=== PATIENT | male | born 1945 | race Caucasian/White ===

== ENCOUNTER → 2016-03-14 | Outpatient (CLI) | payer OTHER, MEDICARE ==
--- NOTE | 2016-03-14 19:20 | DX ---
PA and Lateral Chest on March 14, 2016 Clinical Indications: Upper respiratory tract infection in a 71-year-old male; no previous studies a re available for comparison. Findings: There is right upper lobe alveolar opacity presumably reflecting pneumonia. Bilateral perih ilar opacities as well as peribronchial thickening are seen. There is blunting of the right costophre thierno angle which may represent a small pleural effusion. There is also hyperexpansion seen suggesting COPD. The heart is borderline enlarged and there is mild pulmonary venous redistribution. Postoperati ve changes of previous open heart surgery are seen. Impression: 1. Suspect right upper lobe pneumonia superimposed upon underlying COPD/chronic bronchitis. 2. Right pleural effusion. 3. Findings suggest low-grade congestive heart failure without pulmonary edema.
== END ==
LOC: GIMAGING 14:57
PROVIDERS: ATTEND Internal Medicine
DX: J98.4 Other disorders of lung (principal); J90 Pleural effusion, not elsewhere classified; I51.7 Cardiomegaly
CPT/HCPCS: 71020-PO

== ENCOUNTER → 2016-09-25 | Outpatient (CLI) | payer OTHER, MEDICARE | LOC: BHFA 09:15 | PROVIDERS: ATTEND Internal Medicine Interventional Cardiology | DX: I25.10 Atherosclerotic heart disease of native coronary artery without angina pectoris (principal); I10 Essential (primary) hypertension; R06.02 Shortness of breath ==

== ENCOUNTER → 2016-12-28 | Outpatient (CLI) | payer OTHER, MEDICARE | LOC: SBRMNEURO 20:00 | PROVIDERS: ATTEND Psychiatry & Neurology Sleep Medicine | DX: G47.33 Obstructive sleep apnea (adult) (pediatric) (principal); G47.31 Primary central sleep apnea; G47.61 Periodic limb movement disorder; G47.52 REM sleep behavior disorder ==

== ENCOUNTER → 2017-01-17 | Day surgery (SDC) | payer OTHER, MEDICARE ==
[~2017-01-17] MED LIST: BUPIVACAINE 0.5% 30 ML SDV ONE; GLYCOPYRROLATE 0.2 MG/1 ML VIAL ONE; HYDROmorphONE/DILAUDID 1 MG/ML INJ IVP PRN; LIDOCAINE 1% 2 ML INJ ID PRN; MIDAZOLAM 2 MG/2 ML VIAL IVP ONE; NALOXONE HCL 0.4 MG/ML INJ IVP PRN; NEOSTIGMINE METHYLSULFATE 3 MG/3 ML SYR ONE; NS 1,000 ML IV ONE; ONDANSETRON 4 MG/2 ML VIAL ONE; POVIDONE-IODINE 30 GM OINTTUBE TP ONE; PROPOFOL 200 MG/20 ML VIAL ONE; RANITIDINE 50 MG/2 ML VIAL ONE; ROCURONIUM 50 MG/5 ML VIAL ONE; ceFAZolin 2 GM/SWFI 2 GM/20 ML SYR IVP ONE; fentaNYL 100 MCG/2 ML INJ IVP PRN; fentaNYL 100 MCG/2 ML INJ ONE
[2017-01-17 06:14] VITALS: PULSE 70
--- NOTE | 2017-01-17 07:04 | PDHPUP ---
History & Physical Update H&P update statement: This history and physical update is based on an assessment of the patient which was completed after admission or registration (within 24 hours), but prior to the surgery/procedure. reviewed 01/17/17
[2017-01-17 07:07] LABS: ANION GAP 10 mEq/L (8-16); CALCIUM 8.4 mg/dL (8.5-10.4); CARBON DIOXIDE 28 mEq/l (22-31); CHLORIDE 102 mEq/L (97-110); CREATININE 3.7 mg/dL (0.7-1.3); GLOMERULAR FILTRATION RATE 16; GLUCOSE 97 mg/dL (70-100); POTASSIUM 4.8 mEq/L (3.5-5.2); SODIUM 140 mEq/L (134-144)
--- NOTE | 2017-01-17 07:08 | PDANEPAE ---
ANE History of Present Illness PD catheter placement ANE Past Medical History - Cardiovascular History Hx Hypertension: Yes Hx Arrhythmias: No Hx Chest Pain: No Hx Coronary Artery / Peripheral Vascular Disease: Yes Hx CHF / Valvular Disease: No Hx Palpitations: No Cardiovascular History Comment: CABG - Pulmonary History Hx COPD: No Hx Asthma/Reactive Airway Disease: No Hx Recent Upper Respiratory Infection: No Hx Oxygen in Use at Home: No Hx Sleep Apnea: Yes Sleep Apnea Screening Result - Last Documented: Positive Pulmonary History Comment: AMIRA -will get CPAP 01-28-17 - Neurologic History Hx Cerebrovascular Accident: No Hx Seizures: No Hx Dementia: No - Endocrine History Hx Diabetes: Yes Endocrine History Comment: DM for about 20 years, on insulin, A1C=5.6 - Renal History Hx Renal Disorders: Yes Renal History Comment: end stage renal disease-renal dialysis using Cath in R chest beginning 11-17. - Liver History Hx Hepatic Disorders: No - Neurological & Psychiatric Hx Hx Neurological and Psychiatric Disorders: No - Cancer History Hx Cancer: No - Congenital Disorder History Hx Congenital Disorders: No - GI History GERD: no Hx Gastrointestinal Disorders: Yes Gastrointestinal History Comment: on Rx for 2 very small ulcers. pt. denies heartburn - Other Health History Other Health History: desire for peritoneal dialysis- Pt has catheter for renal dialysis R chest. - Surgical History Prior Surgeries: CABG (Triple) Mar 2001. TURP 2011 ANE Review of Systems Review of Systems: - Exercise capacity METS (RN): 4 METS ANE Patient History - Allergies Allergies/Adverse Reactions: No Known Allergies Allergy (Unverified 01/15/17 11:50) - Home Medications Home Medications: Lantus 100 UNITS/ML (*) 01/15/17 [Last Taken 01/16/17 17:00] Novolog Flexpen 01/15/17 [Last Taken 01/16/17] Pantoprazole Sodium 01/15/17 [Last Taken 01/16/17] Probiotic 01/15/17 [Last Taken 01/16/17] Furosemide [Lasix 40 MG (*)] 01/17/17 [Last Taken 01/16/17] Metoprolol Succinate DAILY 01/17/17 [Last Taken 01/16/17] - NPO status NPO Since - Liquids (Date): 01/16/17 NPO Since - Liquids (Time): 21:00 NPO Since - Solids (Date): 11/16/17 NPO Since - Solids (Time): 21:00 - Smoking Hx Smoking Status: Never smoked ANE Labs/Vital Signs - Labs Result Diagrams: 01/17/17 05:49 - Vital Signs Blood Pressure: 134/69 Heart Rate: 70 Respiratory Rate: 16 O2 Sat (%): 91 Height: 175.26 cm Weight: 83.461 kg ANE Physical Exam - Airway Neck exam: FROM Mallampati Score: Class 1 Mouth exam: normal dental/mouth exam - Pulmonary Pulmonary: clear to auscultation - Cardiovascular Cardiovascular: regular rate and rhythym ANE Anesthesia Plan Anesthesia Plan: general endotracheal anesthesia
[2017-01-17 09:28] VITALS: TEMP 97.5
[2017-01-17 09:30] VITALS: RESP 10; O2SAT 93
[2017-01-17 09:45] VITALS: BP 123/61
--- NOTE | 2017-01-17 12:08 | POSTANESTH ---
Post Anesthetic Evaluation Cardiovascular Status: Similar to Pre-Op Cond Respiratory Status: Similar to Pre-op Cond. Level of Consciousness/Mental Status: Can Participate in Eval Pain Control: Adequate, Prn Tx Ordered Nausea/Vomiting Control: Adequate, Prn Tx Ordered Complications Possibly Related to Anesthesia: None Noted
--- NOTE | 2017-01-17 14:09 | POSTOPPROG ---
Post Op Note Date of Operation: 01/17/17 Surgeon: Aidan Thomas Senior Reservations Agent: Silvio Valentine Anesthesiologist: Dr Rascon Anesthesia: GET(General Endotracheal) Pre-op Diagnosis: renal failure Post-op Diagnosis: same Indication: need for dialysis Procedure: Lap PD catheter Inf/Abcess present in the surg proc area at time of surgery?: No Depth: Organ Space EBL: Minimal
--- NOTE | 2017-01-18 22:39 | GOP ---
[f rep st] OPERATIVE REPORT DATE OF OPERATION: 01/17/2017 SURGEON: Aidan Thomas MD SUPERVISOR KOSHER DIETARY SERVICE: SETH Herrera ANESTHESIOLOGIST: Dr. Rascon PREOPERATIVE DIAGNOSIS: Chronic renal failure. POSTOPERATIVE DIAGNOSIS: Chronic renal failure. PROCEDURE PERFORMED: Laparoscopic peritoneal catheter placement. FINDINGS: Excellent flow DESCRIPTION OF PROCEDURE: Patient was taken to the operating room where he received satisfactory general endotracheal anesthesia by Dr. Rascon. He was placed in supine position, prepped and draped in the usual sterile fashion. A short transverse incision made in the periumbilical area in the left lower quadrant. Dissection extended down through the rectus sheath. The rectus muscles fibers were in the direction of their fibers, and the posterior sheath was then exposed. A Veress needle was inserted. Pneumoperitoneum was established. Trocar was introduced. Good visualization was obtained. A second trocar was placed in the left lower quadrant more inferiorly. A small-neck catheter was introduced through the upper incision and then positioned deep in the pelvis. The upper trocar was removed, and the catheter was secured in place with the Dacron pledget underneath the rectus sheath with interrupted 0 Vicryl sutures. The lower trocar was then removed, and the catheter was brought out subcutaneously through this incision with the second Dacron pledget being positioned 2 cm from the exit site. The abdomen was then instilled with 500 cc of saline, then the flow was reversed, and there was excellent return with essentially return of all the fluid. Wounds were infiltrated with 0.5% Marcaine. Subcu was closed with 3-0 Vicryl and skin with a 4-0 Monocryl subcuticular stitch. All layers were infiltrated with 0.5% Marcaine. The wounds were dressed. He tolerated the procedure well, taken to recovery room in good condition. Copy requested to: Dr. Mojica /[id number]/MODL MTDD
== END | disposition home or self-care (01) ==
LOC: FSGY 05:44
PROVIDERS: ATTEND Surgery
PROC: 0WHG03Z Insertion of Infusion Device into Peritoneal Cavity, Open Approach (ICD-10-PCS; principal; 2017-01-17 07:15)
DX: N18.6 End stage renal disease (principal); I12.0 Hypertensive chronic kidney disease with stage 5 chronic kidney disease or end stage renal disease; E11.69 Type 2 diabetes mellitus with other specified complication; E11.319 Type 2 diabetes mellitus with unspecified diabetic retinopathy without macular edema; E11.621 Type 2 diabetes mellitus with foot ulcer; L97.509 Non-pressure chronic ulcer of other part of unspecified foot with unspecified severity; Z99.2 Dependence on renal dialysis; Z79.899 Other long term (current) drug therapy
CPT/HCPCS: C1750; J0690; J2250; J2405; J2704; J2710; J2780; J3010

== ENCOUNTER → 2017-12-30 | Outpatient (CLI) | payer OTHER, MEDICARE | LOC: BHFA 08:30 | PROVIDERS: ATTEND Internal Medicine Cardiovascular Disease | DX: I25.10 Atherosclerotic heart disease of native coronary artery without angina pectoris (principal) | CPT/HCPCS: 78452; 93017; A9500; J2785 ==

== ENCOUNTER → 2018-01-07 | Outpatient (CLI) | payer OTHER, MEDICARE | LOC: BHLMT 14:00 | PROVIDERS: ATTEND Internal Medicine Interventional Cardiology | DX: I25.10 Atherosclerotic heart disease of native coronary artery without angina pectoris (principal) | CPT/HCPCS: 93306-PO ==

== ENCOUNTER → 2018-04-08 | Outpatient (CLI) | payer OTHER, MEDICARE | LOC: FIMAGING 18:22 | PROVIDERS: ATTEND Podiatrist Primary Podiatric Medicine | DX: L97.522 Non-pressure chronic ulcer of other part of left foot with fat layer exposed (principal); M20.12 Hallux valgus (acquired), left foot; M21.612 Bunion of left foot ==

== ENCOUNTER 2018-04-30 13:51 | Day surgery (SDC) | payer OTHER, MEDICARE ==
--- NOTE | 2018-04-30 12:29 | PDHPUP ---
History & Physical Update H&P update statement: This history and physical update is based on an assessment of the patient which was completed after admission or registration (within 24 hours), but prior to the surgery/procedure. H&P update: H&P reviewed & patient examined, no change in patient's condition since H&P completed
[2018-04-30] MEDS ORDERED: NS 1,000 ML IV ONE (14:08)
--- NOTE | 2018-04-30 14:29 | PDANEPAE ---
ANE History of Present Illness toe ANE Past Medical History - Cardiovascular History Hx Hypertension: Yes Hx Arrhythmias: Yes Hx Chest Pain: No Hx Coronary Artery / Peripheral Vascular Disease: Yes Hx CHF / Valvular Disease: No Hx Palpitations: No Cardiovascular History Comment: cardiomyopathy. CAD with 3v CABG in [place] 2003 following [place]. hyperlipidemia. followed by [facility] - Pulmonary History Hx COPD: No Hx Asthma/Reactive Airway Disease: No Hx Recent Upper Respiratory Infection: No Hx Oxygen in Use at Home: No Hx Sleep Apnea: Yes Sleep Apnea Screening Result - Last Documented: Positive Pulmonary History Comment: sleeps with head elevated, snores but no obstruction - Neurologic History Hx Cerebrovascular Accident: No Hx Seizures: No Hx Dementia: No Neurologic History Comment: diabetic neuropathies - Endocrine History Hx Diabetes: Yes Hypothyroid: No Hyperthyroid: No Obesity: mild Endocrine History Comment: IDDM - Renal History Hx Renal Disorders: Yes Renal History Comment: ESRD switched from HD to PD in early 2017. followed by [facility]. BPH - Liver History Hx Hepatic Disorders: No - Neurological & Psychiatric Hx Hx Neurological and Psychiatric Disorders: Yes Neurological / Psychiatric History Comment: hx of depression - Cancer History Hx Cancer: No - Congenital Disorder History Hx Congenital Disorders: No - GI History GERD: no Hx Gastrointestinal Disorders: No Gastrointestinal History Comment: on Rx for 2 very small ulcers. pt. denies heartburn - Other Health History Other Health History: glasses. bilateral hearing aides. non-healing ulcer to toe - Chronic Pain History Chronic Pain: No - Surgical History Prior Surgeries: 4 procedures this past year. bilateral cataracts. dialysis shunts x2. PD catheter placed with William 01/17/17. CABG 3v. TURP 2012 ANE Review of Systems Review of Systems: - Exercise capacity Exercise capacity: <4 METS METS (RN): 3 METS ANE Patient History - Allergies Allergies/Adverse Reactions: No Known Allergies Allergy (Verified 04/29/18 14:20) - Home Medications Home medications: home medication list seen and reviewed Home Medications: Amlodipine Besylate 04/29/18 [Last Taken Unknown] Herbals/Supplements -Info Only 04/29/18 [Last Taken 04/29/18] Lasix 80 MG (*) 04/29/18 [Last Taken 04/29/18] Levemir 04/29/18 [Last Taken Unknown] Metoprolol Succinate 04/29/18 [Last Taken 04/30/18 07:00] SIMVASTATIN 04/30/18 [Last Taken 04/29/18] - NPO status NPO Status: no food or drink >8 hours NPO Since - Liquids (Date): 04/30/18 NPO Since - Liquids (Time): 07:00 NPO Since - Solids (Date): 04/29/18 NPO Since - Solids (Time): 06:30 - Anes Hx Anes Hx: no prior problems - Smoking Hx Smoking Status: Never smoked - Family Anes Hx Family Hx Anesthesia Complications: none ANE Labs/Vital Signs - Vital Signs Blood Pressure: 135/65 Heart Rate: 77 Respiratory Rate: 18 O2 Sat (%): 98 Height: 175.26 cm Weight: 94.3 kg ANE Physical Exam - Airway Mallampati Score: Class 2 Mouth exam: normal dental/mouth exam - Pulmonary Pulmonary: no respiratory distress - Cardiovascular Cardiovascular: regular rate and rhythym - ASA Status ASA Status: III ANE Anesthesia Plan Anesthesia Plan: GA with mask, MAC
[2018-04-30] MEDS ORDERED: LIDOCAINE 2% 5 ML SDV ONE ×2 (14:48→14:58)
[2018-04-30] MEDS ORDERED: BUPIVACAINE 0.25% 30 ML SDV ONE (14:48)
[2018-04-30] MEDS ORDERED: EPINEPHrine 1 MG/ML INJ ONE (14:48)
[2018-04-30] MEDS ORDERED: BUPIVACAINE 0.5% 30 ML SDV ONE (14:48)
[2018-04-30] MEDS ORDERED: DEXAMETHASONE 4 MG/ML VIAL ONE (14:48)
[2018-04-30] MEDS ORDERED: BACITRACIN 50,000 UNITS/10 ML SYR IRR ONE (14:49)
[2018-04-30 14:50] LABS: PLATELET COUNT 144 10^3/uL (150-400)
[2018-04-30] MEDS ORDERED: PROPOFOL/EMULSION 500 MG/50 ML BOTTLE IV ONE (14:58)
[2018-04-30] MEDS ORDERED: fentaNYL 100 MCG/2 ML INJ ONE (14:58)
[2018-04-30] MEDS ORDERED: ceFAZolin 1 GM VIAL ONE (15:01)
[2018-04-30] MEDS ORDERED: ALBUTEROL 3 ML DEYVIAL IH PRN (15:44)
[2018-04-30] MEDS ORDERED: ONDANSETRON 4 MG/2 ML VIAL IVP PRN (15:44)
[2018-04-30] MEDS ORDERED: NALOXONE HCL 0.4 MG/ML INJ IVP PRN (15:44)
[2018-04-30] MEDS ORDERED: fentaNYL 100 MCG/2 ML INJ IVP PRN (15:44)
[2018-04-30] MEDS ORDERED: PROPOFOL 200 MG/20 ML VIAL ONE (15:48)
--- NOTE | 2018-04-30 16:15 | POSTOPPROG ---
Post Op Note Date of Operation: 04/30/18 Surgeon: Alex Montesinos Resistance Welder: none Anesthesiologist: Ruel Anesthesia: IV Sedation Pre-op Diagnosis: ulcer and osteomyelitis left 1st Post-op Diagnosis: same Indication: infection Procedure: bunionectomy with bone biopsy left Findings: none Inf/Abcess present in the surg proc area at time of surgery?: Yes Depth: Deep Incisional (Fascial) EBL: Minimal Total fluids administered: 20cc 9/1 .25% marcaine plain and with epi Complications: none Drains: Other (none)
--- NOTE | 2018-04-30 16:27 | POSTANESTH ---
Post Anesthetic Evaluation Cardiovascular Status: Normal, Stable Respiratory Status: Normal, Stable Level of Consciousness/Mental Status: Can Participate in Eval Pain Control: Adequate, Prn Tx Ordered Nausea/Vomiting Control: Adequate, Prn Tx Ordered Complications Possibly Related to Anesthesia: None Noted
[2018-04-30 17:35] VITALS: BP 140/62
--- NOTE | 2018-05-01 13:00 | GOP ---
[f rep st] OPERATIVE REPORT DATE OF OPERATION: 04/30/2018 SURGEON: Alex Montesinos DPM MANAGER CASINO: None. ANESTHESIA: Local with MAC. ANESTHESIOLOGIST: Dr. Lipscomb. PREOPERATIVE DIAGNOSIS: 1. Hallux abductovalgus, left. 2. Ulceration, left first metatarsal. 3. Osteomyelitis, left first metatarsal. POSTOPERATIVE DIAGNOSIS: 1. Hallux abductovalgus, left. 2. Ulceration, left first metatarsal. 3. Osteomyelitis, left first metatarsal. PROCEDURE PERFORMED: 1. Modified Thomas bunionectomy, left. 2. Excision ulceration, left first metatarsal. 3. Primary closure ulceration, left first metatarsal. FINDINGS: SPECIMENS: Bone specimen sent for culture and sensitivity and pathological evaluation. ESTIMATED BLOOD LOSS: Minimal. DESCRIPTION OF PROCEDURE: The patient presented to [facility] and was cleared for the intended procedure. The patient was taken to the operating room and placed on the table in supine po sition. IV sedation was started per the anesthesia department. Foot was anesthetized in an infiltra tive nerve block fashion. Foot was prepped, scrubbed and draped in the usual sterile fashion. Follo wing exsanguination by elevation with Esmarch bandage, pneumatic ankle tourniquet was inflated to 250 mmHg. At this time, attention was directed to the medial aspect of the left first metatarsal head w here the full-thickness ulceration was identified. Given the fact that it was probing virtually to b one, it was decided that the bone biopsy would be necessary. At this time, a linear incision was mad e medial to the extensor hallucis longus tendon over the first metatarsophalangeal joint. The incisi on was carried deep utilizing sharp and blunt dissection, making sure that all neurovascular structur es were identified and retracted at this time. All superficial bleeders were cauterized. The incisi on was carried down deep to the level of the joint capsule. At this time, attention was redirected i nto the first intermetatarsal space, where again utilizing sharp blunt and dissection, the transverse ligament was released. This was then followed by release of the adductor tendon from the base of th e proximal phalanx. There was continued rigidity of the metatarsophalangeal joint and obvious promin ence. It was decided that a capsulotomy would be performed. Capsular tissues were dissected free me dially and laterally to allow for adequate exposure to the head of the metatarsal. At this time, a M cGlamry elevator was introduced to free up the sesamoid apparatus. The hypertrophied medial eminence was then resected with a sagittal saw and the bone was sent in for culture and sensitivity. Another slice of bone from the same area was then also taken and sent in for pathological evaluation for ost eomyelitis. Upon completion of this, the area appeared to show healthy bone without obvious evidence of osteo. Upon completion of this, attention was redirected to the ulceration area. The ulceration had considerable nonviable tissue. It was decided that excision of the ulceration would be performe d. Two converging semi-elliptical incisions were made, running from proximal to distal around the ul ceration. The interposing skin tissue was dissected free and removed. Upon completion of this, the entire area was flushed with sterile saline and antibiotic rinse in a pulse lavage fashion utilizing 3 L of fluid. Upon completion of this, the deep tissues of the capsule were closed with 2-0 and 3-0 Vicryl on both incisions. Both incisions had 5-0 Vicryl for subcutaneous closure and 4-0 nylon for s kin closure. The areas were dressed with Betadine-soaked Adaptics, 4 x 4's, Jeanie and Coban. The pa tiejoi was taken to the recovery room with vital signs stable, vascular supply intact, digits 1 throug h 5 bilaterally after the pneumatic ankle tourniquet had been released for a total tourniquet time of 49 minutes. HEMOSTASIS: PAT at 250 mmHg by 49 minutes. MATERIALS: None. INJECTABLES: 20 mL 9:1 ratio 0.25% Marcaine plain, 0.25% Marcaine with epi preoperatively. COMPLICATIONS: None. /[id number]/MODL
== END 2018-04-30 17:50 | disposition home or self-care (01) ==
LOC: FSGY 13:51
PROVIDERS: ATTEND Podiatrist Primary Podiatric Medicine
PROC: 0QSP04Z Reposition Left Metatarsal with Internal Fixation Device, Open Approach (ICD-10-PCS; principal; 2018-04-30 15:15)
PROC: 0HBNXZZ Excision of Left Foot Skin, External Approach (ICD-10-PCS; principal; 2018-04-30 15:15)
DX: M20.12 Hallux valgus (acquired), left foot (principal); E11.622 Type 2 diabetes mellitus with other skin ulcer; L97.506 Non-pressure chronic ulcer of other part of unspecified foot with bone involvement without evidence of necrosis; E11.69 Type 2 diabetes mellitus with other specified complication; M86.172 Other acute osteomyelitis, left ankle and foot; E11.22 Type 2 diabetes mellitus with diabetic chronic kidney disease; N18.6 End stage renal disease; I12.0 Hypertensive chronic kidney disease with stage 5 chronic kidney disease or end stage renal disease; I25.10 Atherosclerotic heart disease of native coronary artery without angina pectoris; I25.2 Old myocardial infarction; G47.33 Obstructive sleep apnea (adult) (pediatric); D64.9 Anemia, unspecified; E11.40 Type 2 diabetes mellitus with diabetic neuropathy, unspecified; E11.319 Type 2 diabetes mellitus with unspecified diabetic retinopathy without macular edema; Z99.2 Dependence on renal dialysis; Z95.1 Presence of aortocoronary bypass graft
CPT/HCPCS: J0171; J0690; J1100; J2704; J3010